=== PATIENT | female | born 1940 | race Caucasian/White ===

== ENCOUNTER 2019-09-09 09:24 | Outpatient (CLI) | payer MEDICARE ==
[~2019-09-09 09:24] MED LIST: ASPI-496 PO; CEPH-368 PO; DIGO250T3 PO; HYDROCHLOROTH12.5 MG PO; METO-99 PO; POTA10TA6 PO; RANI150C PO; SIMV20TA19 PO
== END 2019-09-09 23:59 | disposition home or self-care (01) ==
LOC: CVU 09:24
PROVIDERS: ATTEND Internal Medicine Cardiovascular Disease
DX: G62.9 Polyneuropathy, unspecified (principal); E78.5 Hyperlipidemia, unspecified; Z79.899 Other long term (current) drug therapy
CPT/HCPCS: 93922

== ENCOUNTER 2020-12-20 09:40 | Outpatient (CLI) | payer MEDICARE | END 2020-12-20 23:59 | disposition home or self-care (01) | LOC: CFH 09:40 | PROVIDERS: ATTEND Internal Medicine Cardiovascular Disease | DX: I08.2 Rheumatic disorders of both aortic and tricuspid valves (principal); I10 Essential (primary) hypertension | CPT/HCPCS: 93306 ==